=== PATIENT | male | born 1970 | race Caucasian/White ===

== ENCOUNTER 2016-11-14 18:02 | Inpatient (IN) | payer OTHER ==
[~2016-11-14] VITALS: Ht 190.5 cm; Wt 114.8 kg
[~2016-11-14 18:02] MED LIST: ACTOS30 MG PO; ATIVAN0.5 MG PO; ATIVAN1 MG PO; Ativan PO; BENADRYL ALLERG25 MG PO; Benicar PO; CHLORDIAZEPOXID25 MG PO; FOLIC ACID1 MG PO; Folvite PO; HEARTBURN RELI150 M1 PO; INVOKANA100 MG PO; KEPPRA500 MG PO; LEVEMIR FL100 UNIT/1 SC; LIBRIUM10 MG PO; LISINOPRIL20 MG PO; LOSARTAN POTASS50 MG PO; LYRICA100 MG PO; Lopressor PO; METFORMIN HCL1000 MG PO; MORPHINE SULFAT30 M2 PO; OXYCODONE HCL10 MG PO; PANTOPRAZOLE SO40 MG PO; PRAVACHOL20 MG PO; THERAGRAN1 TABLET PO; TIZANIDINE HCL4 MG PO; TRAZODONE HCL50 MG PO; Thiamine,Vitamin B1 PO; VITAMIN B-1100 MG PO; ZANAFLEX4 MG PO; ZANTAC150 MG PO; Zantac,Taladine PO; oxyCODONE PO
[2016-11-14 18:57] LABS: HEMATOCRIT 31.6 % (38.0-50.0); MCH 26.7 PG (29.0-34.0); MCHC 34.8 G/DL (30.0-36.0); MCV 76.7 FL (86-99); MEAN PLAT.VOLUME 11.9 uM^3 (9.0-12.4); PLATELET COUNT 207 K/uL (156-360); RBC DIS.WIDTH-CV 13.9 % (11.8-14.6); RBC DIS.WIDTH-SD 37.5 % (39-53); RED BLOOD COUNT 4.12 M/uL (4.00-5.50); WHITE BLOOD COUNT 18.3 K/uL (4.1-10.2)
[2016-11-14 18:58] LABS: EOSINOPHIL (%) 20.6 % (0-5); EOSINOPHIL COUNT 3.8 K/uL (0-0.3); IMMATURE GRANULOCYTE (%) 0.5 % (0.0-0.7); IMMATURE GRANULOCYTE COUNT 0.9 K/uL; LYMPHOCYTE COUNT 2.9 K/uL (1.0-2.8); MONOCYTE (%) 4.5 % (3-12); MONOCYTE COUNT 0.8 K/uL (0-0.8); NEUTROPHIL (%) 58.5 % (45-76); NEUTROPHIL COUNT 10.8 K/uL (1.8-6.4)
[2016-11-14 19:07] LABS: CHLORIDE 114 mEq/L (99-109); POTASSIUM 5.7 mEq/L (3.7-5.4); SODIUM 139 mEq/L (136-147)
[2016-11-14 19:08] LABS: GLUCOSE 90 mg/dL (70-99)
[2016-11-14 19:12] LABS: GFR ESTIMATE (CALCULATED) 5 mL/min/
[2016-11-14 19:25] LABS: UREA NITROGEN (BUN) 168 mg/dL (9-23)
[2016-11-14] MEDS ORDERED: GLYBURIDE5 MG PO (19:28)
[2016-11-14 19:41] LABS: ADD MIUA? YES; BILIRUBIN SMALL; BLOOD NEGATIVE; COLOR DK YELLOW ((YELLOW)); GLUCOSE (STRIP) NEGATIVE; KETONES TRACE; LEUKOCYTES TRACE; NITRITE NEGATIVE; PROTEIN (STRIP) 30; SPECIFIC GRAVITY 1.026 (1.000-1.030); UROBILINOGEN 0.2 MG/DL (0.2-1.0)
[2016-11-14 19:43] LABS: ANION GAP 20 MEQ/L (2-14)
[2016-11-14 19:46] LABS: AMPHETAMINE NEGATIVE (500 ng/mL); BARBITURATES NEGATIVE (200 ng/mL); BENZODIAZEPINES PRESUMPTIVE POSITIVE (150 ng/mL); COCAINE NEGATIVE (150 ng/mL); INTERNAL CONTROLS VALID? YES; METHADONE NEGATIVE (200 ng/mL); METHAMPHETAMINE NEGATIVE (500 ng/mL); OPIATES (MORPHINE) PRESUMPTIVE POSITIVE (100 ng/mL); OXYCODONE NEGATIVE (100 ng/mL); PHENCYCLIDINE NEGATIVE (25 ng/mL); PROPOXYPHENE NEGATIVE (300 ng/mL); THC CANNABINOIDS NEGATIVE (50 ng/mL); TRICYCLIC ANTIDEPRESSANTS NEGATIVE (300 ng/mL)
[2016-11-14 19:47] LABS: ADD MEDTOX COMMENT Y
[2016-11-14 20:10] LABS: AMORPHOUS URATES CRYSTALS 2+; BACTERIA NONE SEEN; CASTS NONE SEEN /LPF; CRYSTALS PRESENT; EPITHELIAL CELLS NONE SEEN; MUCUS NONE SEEN; RED BLOOD CELLS RARE /HPF (0-5); UCUL ADDED? NO; WHITE BLOOD CELLS RARE /HPF (0-5)
[2016-11-14 20:38] LABS: BENZODIAZEPINES, URINE SCREEN POSITIVE (200 ng/mL)
[2016-11-14 21:53] LABS: BASE EXCESS -22.3 mEq/L (-3 to +3); BICARBONATE 6.2 mEq/L (22-26); CARBOXY HGB 1.6 % (0-5); COMMENTS - BLOOD GASES C+A+; DEVICE ROOM AIR; METHEMOGLOBIN 1.1 % (0-1.5); PCO2 22 mm Hg (35-45); PO2 122 mm Hg (80-100); SITE LR
[2016-11-14 21:54] LABS: pH 7.06 (7.35-7.45)
[2016-11-14 22:30] LABS: CHLORIDE 114 mEq/L (99-109); POTASSIUM 5.4 mEq/L (3.7-5.4); SODIUM 136 mEq/L (136-147)
[2016-11-14 22:33] LABS: ANION GAP 16 MEQ/L (2-14); GLUCOSE 268 mg/dL (70-99)
[2016-11-14 22:35] LABS: SERUM ETHYL ALCOHOL < 10 mg/dL
[2016-11-14 22:36] LABS: GFR ESTIMATE (CALCULATED) 6 mL/min/
[2016-11-14 22:39] LABS: SALICYLATE < 5.0 MG/DL (15-30)
[2016-11-14 22:40] LABS: CREATINE KINASE 192 IU/L (1-294)
[2016-11-14 22:41] LABS: UREA NITROGEN (BUN) 169 mg/dL (9-23)
[2016-11-14 23:21] LABS: TOTAL BILIRUBIN 0.3 mg/dL (0.0-1.0)
[2016-11-14 23:22] LABS: ALKALINE PHOSPHATASE 53 IU/L (3-129)
[2016-11-14 23:25] LABS: DIRECT BILIRUBIN 0.2 mg/dL (0.0-0.3)
[2016-11-15] VITALS (21 sets, daily range): BP systolic 78–115; BP diastolic 39–76
[2016-11-15 01:46] LABS: METH RESISTANT S AUREUS PCR NEGATIVE (NEGATIVE)
[2016-11-15 02:03] LABS: PROBE CHECK PASS; SPECIMEN PROCESSING CONTROL PASS
[2016-11-15 03:35] LABS: BASE EXCESS -19.4 mEq/L (-3 to +3); BICARBONATE 7.5 mEq/L (22-26); CARBOXY HGB 1.6 % (0-5); COMMENTS - BLOOD GASES C+A+; DEVICE ROOM AIR; FI02 21 %; METHEMOGLOBIN 1.8 % (0-1.5); PCO2 21 mm Hg (35-45); PO2 112 mm Hg (80-100); SITE RR; TOTAL RESP RATE 20 resp/min; pH 7.16 (7.35-7.45)
[2016-11-15 03:54] LABS: EOSINOPHIL (%) 14.2 % (0-5); EOSINOPHIL COUNT 1.3 K/uL (0-0.3); HEMATOCRIT 23.7 % (38.0-50.0); HEMATOCRIT 24.2 % (38.0-50.0); IMMATURE GRANULOCYTE (%) 0.3 % (0.0-0.7); IMMATURE GRANULOCYTE COUNT 0.3 K/uL; LYMPHOCYTE COUNT 1.4 K/uL (1.0-2.8); MCH 26.4 PG (29.0-34.0); MCH 26.9 PG (29.0-34.0); MCHC 34.7 G/DL (30.0-36.0); MCHC 35.4 G/DL (30.0-36.0); MCV 76.1 FL (86-99); MEAN PLAT.VOLUME 11.3 uM^3 (9.0-12.4); MEAN PLAT.VOLUME 11.5 uM^3 (9.0-12.4); MONOCYTE (%) 4.3 % (3-12); MONOCYTE COUNT 0.4 K/uL (0-0.8); NEUTROPHIL (%) 65.5 % (45-76); NEUTROPHIL COUNT 5.9 K/uL (1.8-6.4); PLATELET COUNT 153 K/uL (156-360); PLATELET COUNT 155 K/uL (156-360); RBC DIS.WIDTH-CV 13.6 % (11.8-14.6); RBC DIS.WIDTH-CV 13.8 % (11.8-14.6); RBC DIS.WIDTH-SD 36.3 % (39-53); RBC DIS.WIDTH-SD 36.7 % (39-53); RED BLOOD COUNT 3.12 M/uL (4.00-5.50); RED BLOOD COUNT 3.18 M/uL (4.00-5.50); WHITE BLOOD COUNT 8.9 K/uL (4.1-10.2); WHITE BLOOD COUNT 9.1 K/uL (4.1-10.2)
[2016-11-15 04:01] LABS: CHLORIDE 114 mEq/L (99-109); INTER. NORMALIZED RATIO 1.1; PROTHROMBIN TIME 11.6 (9.2-11.2); SODIUM 139 mEq/L (136-147)
[2016-11-15 04:03] LABS: GLUCOSE 218 mg/dL (70-99)
[2016-11-15 04:04] LABS: ANION GAP 18 MEQ/L (2-14)
[2016-11-15 04:07] LABS: GFR ESTIMATE (CALCULATED) 7 mL/min/
[2016-11-15 04:09] LABS: CHLORIDE 114 mEq/L (99-109)
[2016-11-15 04:10] LABS: POTASSIUM 4.1 mEq/L (3.7-5.4); SODIUM 139 mEq/L (136-147); UREA NITROGEN (BUN) 167 mg/dL (9-23)
[2016-11-15 04:12] LABS: GLUCOSE 226 mg/dL (70-99); POTASSIUM 4.1 mEq/L (3.7-5.4)
[2016-11-15 04:13] LABS: ANION GAP 18 MEQ/L (2-14)
[2016-11-15 04:15] LABS: ALKALINE PHOSPHATASE 58 IU/L (3-129); GFR ESTIMATE (CALCULATED) 7 mL/min/; TOTAL BILIRUBIN 0.4 mg/dL (0.0-1.0)
[2016-11-15 04:18] LABS: UREA NITROGEN (BUN) 171 mg/dL (9-23)
[2016-11-15 10:13] LABS: HEMATOCRIT 23.8 % (38.0-50.0); MCH 27.1 PG (29.0-34.0); MCHC 35.3 G/DL (30.0-36.0); MCV 76.8 FL (86-99); MEAN PLAT.VOLUME 11.5 uM^3 (9.0-12.4); PLATELET COUNT 147 K/uL (156-360); RBC DIS.WIDTH-CV 14.2 % (11.8-14.6); WHITE BLOOD COUNT 7.4 K/uL (4.1-10.2)
[2016-11-15 10:48] LABS: EOSINOPHIL (%) 10.7 % (0-5); EOSINOPHIL COUNT 0.8 K/uL (0-0.3); IMMATURE GRANULOCYTE (%) 0.3 % (0.0-0.7); LYMPHOCYTE COUNT 1.4 K/uL (1.0-2.8); MONOCYTE (%) 4.6 % (3-12); MONOCYTE COUNT 0.3 K/uL (0-0.8); NEUTROPHIL (%) 65.7 % (45-76); NEUTROPHIL COUNT 4.9 K/uL (1.8-6.4)
[2016-11-15 10:50] LABS: ANION GAP 21 MEQ/L (2-14); CHLORIDE 112 MEQ/L (99-109); GFR ESTIMATE (CALCULATED) 9 mL/min/; GLUCOSE 243 mg/dL (70-99); POTASSIUM 3.9 MEQ/L (3.7-5.4); SAMPLE HEMOLYSIS CHECK 0; SAMPLE ICTERIC CHECK 0; SAMPLE LIPEMIA CHECK 0; SODIUM 142 MEQ/L (136-147); UREA NITROGEN (BUN) 163 mg/dL (9-23)
[2016-11-15 14:04] LABS: MAGNESIUM 1.3 mg/dl (1.3-2.7)
[2016-11-15 16:01] LABS: POINT-OF-CARE METER ID UU13113803
[2016-11-15 16:37] LABS: EOSINOPHIL (%) 5.8 % (0-5); EOSINOPHIL COUNT 0.4 K/uL (0-0.3); IMMATURE GRANULOCYTE (%) 0.3 % (0.0-0.7); LYMPHOCYTE COUNT 0.9 K/uL (1.0-2.8); MCH 26.6 PG (29.0-34.0); MCHC 34.6 G/DL (30.0-36.0); MCV 76.9 FL (86-99); MEAN PLAT.VOLUME 12.3 uM^3 (9.0-12.4); MONOCYTE (%) 4.2 % (3-12); MONOCYTE COUNT 0.3 K/uL (0-0.8); NEUTROPHIL COUNT 5.3 K/uL (1.8-6.4); PLATELET COUNT 151 K/uL (156-360); RBC DIS.WIDTH-CV 14.1 % (11.8-14.6); RBC DIS.WIDTH-SD 40.4 % (39-53); RED BLOOD COUNT 3.12 M/uL (4.00-5.50); WHITE BLOOD COUNT 6.9 K/uL (4.1-10.2)
[2016-11-15 17:17] LABS: ANION GAP 20 MEQ/L (2-14); CHLORIDE 112 MEQ/L (99-109); GLUCOSE 259 mg/dL (70-99); MAGNESIUM 1.3 mg/dl (1.3-2.7); POTASSIUM 3.8 MEQ/L (3.7-5.4); SAMPLE HEMOLYSIS CHECK 0; SAMPLE ICTERIC CHECK 0; SAMPLE LIPEMIA CHECK 0; SODIUM 142 MEQ/L (136-147)
[2016-11-15 17:28] LABS: GFR ESTIMATE (CALCULATED) 12 mL/min/; UREA NITROGEN (BUN) 157 mg/dL (9-23)
[2016-11-15 22:11] LABS: EOSINOPHIL (%) 4.4 % (0-5); EOSINOPHIL COUNT 0.3 K/uL (0-0.3); HEMATOCRIT 24.2 % (38.0-50.0); IMMATURE GRANULOCYTE (%) 0.5 % (0.0-0.7); LYMPHOCYTE COUNT 0.9 K/uL (1.0-2.8); MCH 26.4 PG (29.0-34.0); MCHC 34.7 G/DL (30.0-36.0); MCV 76.1 FL (86-99); MEAN PLAT.VOLUME 11.3 uM^3 (9.0-12.4); MONOCYTE (%) 5.1 % (3-12); MONOCYTE COUNT 0.3 K/uL (0-0.8); NEUTROPHIL COUNT 4.3 K/uL (1.8-6.4); PLATELET COUNT 164 K/uL (156-360); RBC DIS.WIDTH-SD 39.1 % (39-53); RED BLOOD COUNT 3.18 M/uL (4.00-5.50); WHITE BLOOD COUNT 5.7 K/uL (4.1-10.2)
[2016-11-15 22:50] LABS: ANION GAP 18 MEQ/L (2-14); CHLORIDE 116 MEQ/L (99-109); GFR ESTIMATE (CALCULATED) 20 mL/min/; GLUCOSE 274 mg/dL (70-99); POTASSIUM 3.3 MEQ/L (3.7-5.4); SAMPLE HEMOLYSIS CHECK 0; SAMPLE ICTERIC CHECK 0; SAMPLE LIPEMIA CHECK 0; SODIUM 147 MEQ/L (136-147); UREA NITROGEN (BUN) 139 mg/dL (9-23)
[2016-11-16] VITALS (14 sets, daily range): BP systolic 95–158; BP diastolic 61–99
[2016-11-16 01:53] LABS: POINT-OF-CARE METER ID UU14162636
[2016-11-16 04:46] LABS: EOSINOPHIL (%) 2.4 % (0-5); EOSINOPHIL COUNT 0.2 K/uL (0-0.3); HEMATOCRIT 24.7 % (38.0-50.0); IMMATURE GRANULOCYTE (%) 0.3 % (0.0-0.7); IMMATURE GRANULOCYTE COUNT 0.2 K/uL; MCH 26.6 PG (29.0-34.0); MCHC 35.2 G/DL (30.0-36.0); MCV 75.5 FL (86-99); MEAN PLAT.VOLUME 11.2 uM^3 (9.0-12.4); MONOCYTE COUNT 0.4 K/uL (0-0.8); NEUTROPHIL (%) 77.5 % (45-76); NEUTROPHIL COUNT 5.4 K/uL (1.8-6.4); PLATELET COUNT 186 K/uL (156-360); RBC DIS.WIDTH-CV 13.8 % (11.8-14.6); RBC DIS.WIDTH-SD 36.8 % (39-53); RED BLOOD COUNT 3.27 M/uL (4.00-5.50)
[2016-11-16 05:05] LABS: CHLORIDE 120 mEq/L (99-109); SODIUM 152 mEq/L (136-147)
[2016-11-16 05:06] LABS: MAGNESIUM 1.6 mg/dL (1.3-2.7)
[2016-11-16 05:07] LABS: GLUCOSE 309 mg/dL (70-99)
[2016-11-16 05:09] LABS: ANION GAP 14 MEQ/L (2-14)
[2016-11-16 05:11] LABS: ALKALINE PHOSPHATASE 64 IU/L (3-129)
[2016-11-16 05:19] LABS: GFR ESTIMATE (CALCULATED) 25 mL/min/; TOTAL BILIRUBIN 0.7 mg/dL (0.0-1.0); UREA NITROGEN (BUN) 119 mg/dL (9-23)
[2016-11-16 06:14] LABS: POINT-OF-CARE METER ID UU14174217
[2016-11-16 09:52] LABS: EOSINOPHIL COUNT 0.1 K/uL (0-0.3); HEMATOCRIT 24.7 % (38.0-50.0); IMMATURE GRANULOCYTE (%) 0.2 % (0.0-0.7); LYMPHOCYTE COUNT 0.9 K/uL (1.0-2.8); MCH 26.9 PG (29.0-34.0); MCHC 35.2 G/DL (30.0-36.0); MCV 76.5 FL (86-99); MEAN PLAT.VOLUME 11.6 uM^3 (9.0-12.4); MONOCYTE (%) 4.3 % (3-12); MONOCYTE COUNT 0.3 K/uL (0-0.8); NEUTROPHIL (%) 78.1 % (45-76); NEUTROPHIL COUNT 4.6 K/uL (1.8-6.4); PLATELET COUNT 163 K/uL (156-360); RBC DIS.WIDTH-CV 14.1 % (11.8-14.6); RBC DIS.WIDTH-SD 39.4 % (39-53); RED BLOOD COUNT 3.23 M/uL (4.00-5.50); WHITE BLOOD COUNT 5.8 K/uL (4.1-10.2)
[2016-11-16 10:13] LABS: ANION GAP 15 MEQ/L (2-14); CHLORIDE 116 MEQ/L (99-109); GFR ESTIMATE (CALCULATED) 37 mL/min/; GLUCOSE 307 mg/dL (70-99); POTASSIUM 2.9 MEQ/L (3.7-5.4); SAMPLE HEMOLYSIS CHECK 0; SAMPLE ICTERIC CHECK 0; SAMPLE LIPEMIA CHECK 0; SODIUM 154 MEQ/L (136-147); UREA NITROGEN (BUN) 97 mg/dL (9-23)
[2016-11-16 13:45] LABS: POINT-OF-CARE METER ID UU14162636
[2016-11-16 16:29] LABS: ANION GAP 14 MEQ/L (2-14); CHLORIDE 118 MEQ/L (99-109); GFR ESTIMATE (CALCULATED) 44 mL/min/; GLUCOSE 312 mg/dL (70-99); SAMPLE HEMOLYSIS CHECK 0; SAMPLE ICTERIC CHECK 0; SAMPLE LIPEMIA CHECK 0; SODIUM 156 MEQ/L (136-147); UREA NITROGEN (BUN) 79 mg/dL (9-23)
[2016-11-16 16:59] LABS: EOSINOPHIL (%) 0.2 % (0-5); HEMATOCRIT 25.9 % (38.0-50.0); IMMATURE GRANULOCYTE (%) 0.2 % (0.0-0.7); LYMPHOCYTE COUNT 0.6 K/uL (1.0-2.8); MCH 26.6 PG (29.0-34.0); MCHC 34.4 G/DL (30.0-36.0); MCV 77.5 FL (86-99); MEAN PLAT.VOLUME 11.8 uM^3 (9.0-12.4); MONOCYTE (%) 4.1 % (3-12); MONOCYTE COUNT 0.3 K/uL (0-0.8); NEUTROPHIL (%) 86.2 % (45-76); NEUTROPHIL COUNT 5.3 K/uL (1.8-6.4); PLATELET COUNT 169 K/uL (156-360); RBC DIS.WIDTH-CV 14.1 % (11.8-14.6); RBC DIS.WIDTH-SD 40.6 % (39-53); RED BLOOD COUNT 3.34 M/uL (4.00-5.50); WHITE BLOOD COUNT 6.2 K/uL (4.1-10.2)
[2016-11-16 17:59] LABS: POINT-OF-CARE METER ID UU14174217
[2016-11-16 20:52] LABS: ANION GAP 14 MEQ/L (2-14); CHLORIDE 117 MEQ/L (99-109); GFR ESTIMATE (CALCULATED) 44 mL/min/; GLUCOSE 373 mg/dL (70-99); SAMPLE HEMOLYSIS CHECK 0; SAMPLE ICTERIC CHECK 0; SAMPLE LIPEMIA CHECK 0; SODIUM 154 MEQ/L (136-147); UREA NITROGEN (BUN) 69 mg/dL (9-23)
[2016-11-16 22:27] LABS: EOSINOPHIL (%) 0 % (0-5); HEMATOCRIT 26.4 % (38.0-50.0); IMMATURE GRANULOCYTE (%) 0.2 % (0.0-0.7); IMMATURE GRANULOCYTE COUNT 0.1 K/uL; LYMPHOCYTE COUNT 0.8 K/uL (1.0-2.8); MCH 26.7 PG (29.0-34.0); MCHC 34.5 G/DL (30.0-36.0); MCV 77.4 FL (86-99); MEAN PLAT.VOLUME 10.8 uM^3 (9.0-12.4); MONOCYTE (%) 4.5 % (3-12); MONOCYTE COUNT 0.3 K/uL (0-0.8); NEUTROPHIL (%) 83.1 % (45-76); NEUTROPHIL COUNT 5.4 K/uL (1.8-6.4); PLATELET COUNT 173 K/uL (156-360); RBC DIS.WIDTH-CV 13.9 % (11.8-14.6); RBC DIS.WIDTH-SD 37.5 % (39-53); RED BLOOD COUNT 3.41 M/uL (4.00-5.50); WHITE BLOOD COUNT 6.5 K/uL (4.1-10.2)
[2016-11-16 22:36] LABS: CHLORIDE 123 mEq/L (99-109); POTASSIUM 3.2 mEq/L (3.7-5.4); SODIUM 156 mEq/L (136-147)
[2016-11-16 22:38] LABS: GLUCOSE 335 mg/dL (70-99)
[2016-11-16 22:39] LABS: ANION GAP 12 MEQ/L (2-14)
[2016-11-16 22:42] LABS: GFR ESTIMATE (CALCULATED) 39 mL/min/
[2016-11-16 22:43] LABS: UREA NITROGEN (BUN) 71 mg/dL (9-23)
[2016-11-17] VITALS (10 sets, daily range): BP systolic 121–160; BP diastolic 64–82
[2016-11-17 00:15] LABS: POINT-OF-CARE METER ID UU14174217; POINT-OF-CARE USER ID RADDRS44
[2016-11-17 05:29] LABS: POINT-OF-CARE USER ID RADDRS44
[2016-11-17 05:32] LABS: EOSINOPHIL (%) 0.2 % (0-5); HEMATOCRIT 25.2 % (38.0-50.0); IMMATURE GRANULOCYTE (%) 0.4 % (0.0-0.7); LYMPHOCYTE COUNT 1.1 K/uL (1.0-2.8); MCH 26.9 PG (29.0-34.0); MCHC 33.7 G/DL (30.0-36.0); MCV 79.7 FL (86-99); MEAN PLAT.VOLUME 11.4 uM^3 (9.0-12.4); MONOCYTE (%) 6.4 % (3-12); MONOCYTE COUNT 0.3 K/uL (0-0.8); NEUTROPHIL (%) 72.9 % (45-76); NEUTROPHIL COUNT 3.9 K/uL (1.8-6.4); PLATELET COUNT 147 K/uL (156-360); RBC DIS.WIDTH-CV 14.2 % (11.8-14.6); RBC DIS.WIDTH-SD 41.2 % (39-53); RED BLOOD COUNT 3.16 M/uL (4.00-5.50); WHITE BLOOD COUNT 5.3 K/uL (4.1-10.2)
[2016-11-17 06:11] LABS: ANION GAP 14 MEQ/L (2-14); CHLORIDE 123 MEQ/L (99-109); GFR ESTIMATE (CALCULATED) 44 mL/min/; GLUCOSE 251 mg/dL (70-99); MAGNESIUM 1.2 mg/dl (1.3-2.7); POTASSIUM 3.7 MEQ/L (3.7-5.4); SAMPLE HEMOLYSIS CHECK 0; SAMPLE ICTERIC CHECK 0; SAMPLE LIPEMIA CHECK 0; SODIUM 157 MEQ/L (136-147); UREA NITROGEN (BUN) 61 mg/dL (9-23)
[2016-11-17 12:35] LABS: EOSINOPHIL (%) 0.2 % (0-5); HEMATOCRIT 25.7 % (38.0-50.0); IMMATURE GRANULOCYTE (%) 0.3 % (0.0-0.7); LYMPHOCYTE COUNT 1.2 K/uL (1.0-2.8); MCH 26.7 PG (29.0-34.0); MCHC 33.1 G/DL (30.0-36.0); MCV 80.8 FL (86-99); MEAN PLAT.VOLUME 11.9 uM^3 (9.0-12.4); MONOCYTE (%) 8.3 % (3-12); MONOCYTE COUNT 0.5 K/uL (0-0.8); NEUTROPHIL (%) 70.7 % (45-76); NEUTROPHIL COUNT 4.1 K/uL (1.8-6.4); PLATELET COUNT 133 K/uL (156-360); RBC DIS.WIDTH-CV 14.4 % (11.8-14.6); RBC DIS.WIDTH-SD 42.7 % (39-53); RED BLOOD COUNT 3.18 M/uL (4.00-5.50); WHITE BLOOD COUNT 5.8 K/uL (4.1-10.2)
[2016-11-17 13:04] LABS: ANION GAP 12 MEQ/L (2-14); CHLORIDE 118 MEQ/L (99-109); GFR ESTIMATE (CALCULATED) 50 mL/min/; GLUCOSE 274 mg/dL (70-99); POTASSIUM 3.4 MEQ/L (3.7-5.4); SAMPLE HEMOLYSIS CHECK 0; SAMPLE ICTERIC CHECK 0; SAMPLE LIPEMIA CHECK 0; SODIUM 151 MEQ/L (136-147); UREA NITROGEN (BUN) 53 mg/dL (9-23)
[2016-11-17 18:28] LABS: POINT-OF-CARE METER ID UU13113748
[2016-11-17 18:38] LABS: EOSINOPHIL (%) 0.1 % (0-5); HEMATOCRIT 24.3 % (38.0-50.0); IMMATURE GRANULOCYTE (%) 0.3 % (0.0-0.7); LYMPHOCYTE COUNT 1.3 K/uL (1.0-2.8); MCH 27.2 PG (29.0-34.0); MCHC 34.2 G/DL (30.0-36.0); MCV 79.7 FL (86-99); MEAN PLAT.VOLUME 11.6 uM^3 (9.0-12.4); MONOCYTE (%) 7.5 % (3-12); MONOCYTE COUNT 0.5 K/uL (0-0.8); NEUTROPHIL (%) 72.8 % (45-76); NEUTROPHIL COUNT 4.9 K/uL (1.8-6.4); PLATELET COUNT 127 K/uL (156-360); RBC DIS.WIDTH-CV 14.3 % (11.8-14.6); RBC DIS.WIDTH-SD 41.1 % (39-53); RED BLOOD COUNT 3.05 M/uL (4.00-5.50); WHITE BLOOD COUNT 6.8 K/uL (4.1-10.2)
[2016-11-17 19:14] LABS: ANION GAP 11 MEQ/L (2-14); CHLORIDE 117 MEQ/L (99-109); GFR ESTIMATE (CALCULATED) 59 mL/min/; GLUCOSE 263 mg/dL (70-99); POTASSIUM 3.4 MEQ/L (3.7-5.4); SAMPLE HEMOLYSIS CHECK 0; SAMPLE ICTERIC CHECK 0; SAMPLE LIPEMIA CHECK 0; SODIUM 150 MEQ/L (136-147); UREA NITROGEN (BUN) 46 mg/dL (9-23)
[2016-11-17 22:14] LABS: EOSINOPHIL (%) 0.2 % (0-5); IMMATURE GRANULOCYTE (%) 0.3 % (0.0-0.7); LYMPHOCYTE COUNT 1.4 K/uL (1.0-2.8); MCH 26.5 PG (29.0-34.0); MCHC 32.9 G/DL (30.0-36.0); MCV 80.5 FL (86-99); MEAN PLAT.VOLUME 12.2 uM^3 (9.0-12.4); MONOCYTE (%) 6.8 % (3-12); MONOCYTE COUNT 0.4 K/uL (0-0.8); NEUTROPHIL (%) 69.9 % (45-76); NEUTROPHIL COUNT 4.4 K/uL (1.8-6.4); PLATELET COUNT 135 K/uL (156-360); RBC DIS.WIDTH-CV 14.4 % (11.8-14.6); RBC DIS.WIDTH-SD 42.5 % (39-53); RED BLOOD COUNT 2.98 M/uL (4.00-5.50); WHITE BLOOD COUNT 6.3 K/uL (4.1-10.2)
[2016-11-18] VITALS: BP 130/77
[2016-11-18 01:04] LABS: CHLORIDE 119 mEq/L (99-109)
[2016-11-18 01:05] LABS: POTASSIUM 3.2 mEq/L (3.7-5.4); SODIUM 148 mEq/L (136-147)
[2016-11-18 01:06] LABS: GLUCOSE 244 mg/dL (70-99)
[2016-11-18 01:07] LABS: ANION GAP 10 MEQ/L (2-14)
[2016-11-18 01:10] LABS: GFR ESTIMATE (CALCULATED) 54 mL/min/
[2016-11-18 01:11] LABS: UREA NITROGEN (BUN) 44 mg/dL (9-23)
[2016-11-18 04:00] VITALS: BP 166/73
[2016-11-18 04:41] LABS: EOSINOPHIL (%) 0.5 % (0-5); HEMATOCRIT 24.4 % (38.0-50.0); LYMPHOCYTE COUNT 1.6 K/uL (1.0-2.8); MCH 26.5 PG (29.0-34.0); MCHC 32.8 G/DL (30.0-36.0); MCV 80.8 FL (86-99); MEAN PLAT.VOLUME 11.6 uM^3 (9.0-12.4); MONOCYTE (%) 6.9 % (3-12); MONOCYTE COUNT 0.4 K/uL (0-0.8); NEUTROPHIL (%) 64.4 % (45-76); NEUTROPHIL COUNT 3.7 K/uL (1.8-6.4); PLATELET COUNT 129 K/uL (156-360); RBC DIS.WIDTH-CV 13.6 % (11.8-14.6); RBC DIS.WIDTH-SD 38.7 % (39-53); RED BLOOD COUNT 3.02 M/uL (4.00-5.50); WHITE BLOOD COUNT 5.8 K/uL (4.1-10.2)
[2016-11-18 04:55] LABS: CHLORIDE 118 mEq/L (99-109); POTASSIUM 3.1 mEq/L (3.7-5.4)
[2016-11-18 04:56] LABS: SODIUM 147 mEq/L (136-147)
[2016-11-18 04:57] LABS: GLUCOSE 217 mg/dL (70-99)
[2016-11-18 04:59] LABS: ANION GAP 9 MEQ/L (2-14)
[2016-11-18 05:01] LABS: GFR ESTIMATE (CALCULATED) 59 mL/min/
[2016-11-18 05:02] LABS: UREA NITROGEN (BUN) 39 mg/dL (9-23)
[2016-11-18 08:00] VITALS: BP 153/83
[2016-11-18 10:48] LABS: EOSINOPHIL (%) 0.5 % (0-5); HEMATOCRIT 26.7 % (38.0-50.0); IMMATURE GRANULOCYTE (%) 0.4 % (0.0-0.7); LYMPHOCYTE COUNT 1.5 K/uL (1.0-2.8); MCH 26.7 PG (29.0-34.0); MCHC 32.6 G/DL (30.0-36.0); MCV 81.9 FL (86-99); MEAN PLAT.VOLUME 11.6 uM^3 (9.0-12.4); MONOCYTE (%) 3.7 % (3-12); MONOCYTE COUNT 0.2 K/uL (0-0.8); NEUTROPHIL (%) 68.1 % (45-76); NEUTROPHIL COUNT 3.8 K/uL (1.8-6.4); PLATELET COUNT 119 K/uL (156-360); RBC DIS.WIDTH-SD 42.3 % (39-53); RED BLOOD COUNT 3.26 M/uL (4.00-5.50); WHITE BLOOD COUNT 5.6 K/uL (4.1-10.2)
[2016-11-18 11:26] LABS: ANION GAP 13 MEQ/L (2-14); CHLORIDE 115 MEQ/L (99-109); GFR ESTIMATE (CALCULATED) 54 mL/min/; GLUCOSE 275 mg/dL (70-99); POTASSIUM 3.2 MEQ/L (3.7-5.4); SAMPLE HEMOLYSIS CHECK 0; SAMPLE ICTERIC CHECK 0; SAMPLE LIPEMIA CHECK 0; SODIUM 148 MEQ/L (136-147); UREA NITROGEN (BUN) 35 mg/dL (9-23)
[2016-11-18 12:00] VITALS: BP 154/93
[2016-11-18 15:46] LABS: EOSINOPHIL (%) 0.7 % (0-5); HEMATOCRIT 25.7 % (38.0-50.0); IMMATURE GRANULOCYTE (%) 0.2 % (0.0-0.7); LYMPHOCYTE COUNT 1.6 K/uL (1.0-2.8); MCH 26.5 PG (29.0-34.0); MCHC 32.3 G/DL (30.0-36.0); MCV 82.1 FL (86-99); MEAN PLAT.VOLUME 12.1 uM^3 (9.0-12.4); MONOCYTE (%) 5.2 % (3-12); MONOCYTE COUNT 0.3 K/uL (0-0.8); NEUTROPHIL (%) 65.8 % (45-76); NEUTROPHIL COUNT 3.7 K/uL (1.8-6.4); PLATELET COUNT 114 K/uL (156-360); RBC DIS.WIDTH-CV 13.9 % (11.8-14.6); RBC DIS.WIDTH-SD 42.1 % (39-53); RED BLOOD COUNT 3.13 M/uL (4.00-5.50); WHITE BLOOD COUNT 5.6 K/uL (4.1-10.2)
[2016-11-18 16:00] VITALS: BP 143/87
[2016-11-18 16:26] LABS: ANION GAP 12 MEQ/L (2-14); CHLORIDE 113 MEQ/L (99-109); GFR ESTIMATE (CALCULATED) 59 mL/min/; GLUCOSE 219 mg/dL (70-99); POTASSIUM 3.2 MEQ/L (3.7-5.4); SAMPLE HEMOLYSIS CHECK 0; SAMPLE ICTERIC CHECK 0; SAMPLE LIPEMIA CHECK 0; SODIUM 145 MEQ/L (136-147); UREA NITROGEN (BUN) 32 mg/dL (9-23)
[2016-11-18 18:25] LABS: ANION GAP 10 MEQ/L (2-14); CHLORIDE 114 MEQ/L (99-109); GFR ESTIMATE (CALCULATED) 59 mL/min/; GLUCOSE 188 mg/dL (70-99); POTASSIUM 3.1 MEQ/L (3.7-5.4); SAMPLE HEMOLYSIS CHECK 0; SAMPLE ICTERIC CHECK 0; SAMPLE LIPEMIA CHECK 0; SODIUM 146 MEQ/L (136-147); UREA NITROGEN (BUN) 32 mg/dL (9-23)
[2016-11-18 20:00] VITALS: BP 161/87
[2016-11-18 21:36] LABS: EOSINOPHIL (%) 2.3 % (0-5); EOSINOPHIL COUNT 0.1 K/uL (0-0.3); IMMATURE GRANULOCYTE (%) 0.2 % (0.0-0.7); LYMPHOCYTE COUNT 1.6 K/uL (1.0-2.8); MCH 26.8 PG (29.0-34.0); MCHC 32.8 G/DL (30.0-36.0); MCV 81.7 FL (86-99); MEAN PLAT.VOLUME 11.5 uM^3 (9.0-12.4); MONOCYTE (%) 6.4 % (3-12); MONOCYTE COUNT 0.4 K/uL (0-0.8); NEUTROPHIL (%) 64.4 % (45-76); PLATELET COUNT 111 K/uL (156-360); RBC DIS.WIDTH-CV 13.7 % (11.8-14.6); RBC DIS.WIDTH-SD 41.3 % (39-53); RED BLOOD COUNT 3.06 M/uL (4.00-5.50); WHITE BLOOD COUNT 6.1 K/uL (4.1-10.2)
[2016-11-18 22:12] LABS: ANION GAP 10 MEQ/L (2-14); CHLORIDE 111 MEQ/L (99-109); GFR ESTIMATE (CALCULATED) > 59 mL/min/; GLUCOSE 177 mg/dL (70-99); SAMPLE HEMOLYSIS CHECK 0; SAMPLE ICTERIC CHECK 0; SAMPLE LIPEMIA CHECK 0; SODIUM 143 MEQ/L (136-147); UREA NITROGEN (BUN) 30 mg/dL (9-23)
[2016-11-19] VITALS (7 sets, daily range): BP systolic 130–176; BP diastolic 77–99
[2016-11-19 00:27] LABS: CHLORIDE 114 mEq/L (99-109); SODIUM 143 mEq/L (136-147)
[2016-11-19 00:29] LABS: GLUCOSE 172 mg/dL (70-99)
[2016-11-19 00:30] LABS: ANION GAP 13 MEQ/L (2-14)
[2016-11-19 00:33] LABS: GFR ESTIMATE (CALCULATED) > 59 mL/min/
[2016-11-19 00:34] LABS: UREA NITROGEN (BUN) 29 mg/dL (9-23)
[2016-11-19 04:27] LABS: EOSINOPHIL (%) 4.1 % (0-5); EOSINOPHIL COUNT 0.3 K/uL (0-0.3); HEMATOCRIT 24.9 % (38.0-50.0); IMMATURE GRANULOCYTE (%) 0.3 % (0.0-0.7); IMMATURE GRANULOCYTE COUNT 0.2 K/uL; LYMPHOCYTE COUNT 1.9 K/uL (1.0-2.8); MCHC 33.7 G/DL (30.0-36.0); MCV 80.1 FL (86-99); MEAN PLAT.VOLUME 11.9 uM^3 (9.0-12.4); MONOCYTE (%) 4.6 % (3-12); MONOCYTE COUNT 0.3 K/uL (0-0.8); NEUTROPHIL (%) 63.9 % (45-76); NEUTROPHIL COUNT 4.5 K/uL (1.8-6.4); PLATELET COUNT 117 K/uL (156-360); RBC DIS.WIDTH-CV 13.3 % (11.8-14.6); RBC DIS.WIDTH-SD 36.8 % (39-53); RED BLOOD COUNT 3.11 M/uL (4.00-5.50); WHITE BLOOD COUNT 7.1 K/uL (4.1-10.2)
[2016-11-19 04:29] LABS: CHLORIDE 113 mEq/L (99-109); POTASSIUM 2.7 mEq/L (3.7-5.4); SODIUM 142 mEq/L (136-147)
[2016-11-19 04:31] LABS: GLUCOSE 163 mg/dL (70-99)
[2016-11-19 04:32] LABS: ANION GAP 11 MEQ/L (2-14)
[2016-11-19 04:34] LABS: GFR ESTIMATE (CALCULATED) > 59 mL/min/
[2016-11-19 04:35] LABS: UREA NITROGEN (BUN) 27 mg/dL (9-23)
[2016-11-19 04:42] LABS: MAGNESIUM 0.9 mg/dL (1.3-2.7)
[2016-11-19 05:55] LABS: POINT-OF-CARE METER ID UU13113781; POINT-OF-CARE USER ID 609231305
[2016-11-19 09:25] LABS: EOSINOPHIL (%) 5.1 % (0-5); EOSINOPHIL COUNT 0.3 K/uL (0-0.3); HEMATOCRIT 24.1 % (38.0-50.0); IMMATURE GRANULOCYTE (%) 0.5 % (0.0-0.7); LYMPHOCYTE COUNT 1.5 K/uL (1.0-2.8); MCH 26.8 PG (29.0-34.0); MCHC 33.6 G/DL (30.0-36.0); MCV 79.8 FL (86-99); MEAN PLAT.VOLUME 10.8 uM^3 (9.0-12.4); MONOCYTE (%) 4.5 % (3-12); MONOCYTE COUNT 0.3 K/uL (0-0.8); NEUTROPHIL (%) 66.5 % (45-76); NEUTROPHIL COUNT 4.4 K/uL (1.8-6.4); PLATELET COUNT 104 K/uL (156-360); RBC DIS.WIDTH-CV 13.5 % (11.8-14.6); RBC DIS.WIDTH-SD 39.3 % (39-53); RED BLOOD COUNT 3.02 M/uL (4.00-5.50); WHITE BLOOD COUNT 6.6 K/uL (4.1-10.2)
[2016-11-19 10:02] LABS: ANION GAP 10 MEQ/L (2-14); CHLORIDE 111 MEQ/L (99-109); GFR ESTIMATE (CALCULATED) > 59 mL/min/; GLUCOSE 189 mg/dL (70-99); POTASSIUM 3.1 MEQ/L (3.7-5.4); SAMPLE HEMOLYSIS CHECK 0; SAMPLE ICTERIC CHECK 0; SAMPLE LIPEMIA CHECK 0; SODIUM 142 MEQ/L (136-147); UREA NITROGEN (BUN) 24 mg/dL (9-23)
[2016-11-19 15:52] LABS: EOSINOPHIL (%) 8.1 % (0-5); EOSINOPHIL COUNT 0.6 K/uL (0-0.3); HEMATOCRIT 25.8 % (38.0-50.0); IMMATURE GRANULOCYTE (%) 0.4 % (0.0-0.7); LYMPHOCYTE COUNT 1.9 K/uL (1.0-2.8); MCH 26.7 PG (29.0-34.0); MCHC 33.3 G/DL (30.0-36.0); MCV 80.1 FL (86-99); MEAN PLAT.VOLUME 10.5 uM^3 (9.0-12.4); MONOCYTE (%) 4.1 % (3-12); MONOCYTE COUNT 0.3 K/uL (0-0.8); NEUTROPHIL (%) 61.3 % (45-76); NEUTROPHIL COUNT 4.5 K/uL (1.8-6.4); NRBC (%) 0.4 /100 WBC (0-0); PLATELET COUNT 106 K/uL (156-360); RBC DIS.WIDTH-CV 13.4 % (11.8-14.6); RBC DIS.WIDTH-SD 38.9 % (39-53); RED BLOOD COUNT 3.22 M/uL (4.00-5.50); WHITE BLOOD COUNT 7.4 K/uL (4.1-10.2)
[2016-11-19 16:18] LABS: ANION GAP 9 MEQ/L (2-14); CHLORIDE 113 MEQ/L (99-109); GFR ESTIMATE (CALCULATED) > 59 mL/min/; GLUCOSE 187 mg/dL (70-99); POTASSIUM 3.3 MEQ/L (3.7-5.4); SAMPLE HEMOLYSIS CHECK 0; SAMPLE ICTERIC CHECK 0; SAMPLE LIPEMIA CHECK 0; SODIUM 143 MEQ/L (136-147); UREA NITROGEN (BUN) 20 mg/dL (9-23)
[2016-11-19 20:43] LABS: ANION GAP 10 MEQ/L (2-14); CHLORIDE 113 MEQ/L (99-109); GFR ESTIMATE (CALCULATED) > 59 mL/min/; GLUCOSE 167 mg/dL (70-99); POTASSIUM 3.2 MEQ/L (3.7-5.4); SAMPLE HEMOLYSIS CHECK 0; SAMPLE ICTERIC CHECK 0; SAMPLE LIPEMIA CHECK 0; SODIUM 143 MEQ/L (136-147); UREA NITROGEN (BUN) 17 mg/dL (9-23)
[2016-11-19 20:44] LABS: MAGNESIUM 2.1 mg/dl (1.3-2.7)
[2016-11-19 20:59] LABS: POINT-OF-CARE METER ID UU13113781
[2016-11-19 22:13] LABS: HEMATOCRIT 24.2 % (38.0-50.0); MCH 26.6 PG (29.0-34.0); MCHC 33.1 G/DL (30.0-36.0); MCV 80.4 FL (86-99); MEAN PLAT.VOLUME 11.7 uM^3 (9.0-12.4); PLATELET COUNT 99 K/uL (156-360); RBC DIS.WIDTH-CV 13.4 % (11.8-14.6); RBC DIS.WIDTH-SD 39.1 % (39-53); RED BLOOD COUNT 3.01 M/uL (4.00-5.50); WHITE BLOOD COUNT 6.6 K/uL (4.1-10.2)
[2016-11-19 22:17] LABS: EOSINOPHIL (%) 10.9 % (0-5); EOSINOPHIL COUNT 0.7 K/uL (0-0.3); IMMATURE GRANULOCYTE (%) 0.6 % (0.0-0.7); LYMPHOCYTE COUNT 1.6 K/uL (1.0-2.8); MONOCYTE (%) 3.2 % (3-12); MONOCYTE COUNT 0.2 K/uL (0-0.8); NEUTROPHIL (%) 61.3 % (45-76)
[2016-11-19 22:44] LABS: ANION GAP 9 MEQ/L (2-14); CHLORIDE 112 MEQ/L (99-109); GFR ESTIMATE (CALCULATED) > 59 mL/min/; GLUCOSE 161 mg/dL (70-99); SAMPLE HEMOLYSIS CHECK 0; SAMPLE ICTERIC CHECK 0; SAMPLE LIPEMIA CHECK 0; SODIUM 141 MEQ/L (136-147); UREA NITROGEN (BUN) 16 mg/dL (9-23)
[2016-11-19 23:53] LABS: HEMATOLOGY COMMENT 1 REV
[2016-11-20 00:34] LABS: POINT-OF-CARE METER ID UU13113781
[2016-11-20 04:10] VITALS: BP 133/79
[2016-11-20 07:37] LABS: ALKALINE PHOSPHATASE 37 IU/L (3-129); ANION GAP 7 MEQ/L (2-14); CHLORIDE 113 MEQ/L (99-109); GFR ESTIMATE (CALCULATED) > 59 mL/min/; GLUCOSE 143 mg/dL (70-99); POTASSIUM 3.1 MEQ/L (3.7-5.4); SAMPLE HEMOLYSIS CHECK 0; SAMPLE ICTERIC CHECK 0; SAMPLE LIPEMIA CHECK 0; SODIUM 143 MEQ/L (136-147); TOTAL BILIRUBIN 0.9 MG/DL (0.0-1.0); UREA NITROGEN (BUN) 13 mg/dL (9-23)
[2016-11-20 07:45] LABS: MAGNESIUM 1.7 mg/dl (1.3-2.7)
[2016-11-20 07:48] LABS: EOSINOPHIL (%) 15.7 % (0-5); EOSINOPHIL COUNT 0.9 K/uL (0-0.3); HEMATOCRIT 23.2 % (38.0-50.0); IMMATURE GRANULOCYTE (%) 0.7 % (0.0-0.7); LYMPHOCYTE COUNT 1.2 K/uL (1.0-2.8); MCH 26.8 PG (29.0-34.0); MCHC 33.2 G/DL (30.0-36.0); MCV 80.8 FL (86-99); MEAN PLAT.VOLUME 12.2 uM^3 (9.0-12.4); MONOCYTE COUNT 0.2 K/uL (0-0.8); NEUTROPHIL (%) 58.4 % (45-76); NEUTROPHIL COUNT 3.4 K/uL (1.8-6.4); PLATELET COUNT 95 K/uL (156-360); RBC DIS.WIDTH-CV 13.4 % (11.8-14.6); RBC DIS.WIDTH-SD 39.2 % (39-53); RED BLOOD COUNT 2.87 M/uL (4.00-5.50); WHITE BLOOD COUNT 5.8 K/uL (4.1-10.2)
[2016-11-20 08:30] VITALS: BP 151/92
[2016-11-20 11:40] VITALS: BP 142/80
[2016-11-20 14:15] VITALS: BP 123/58
[2016-11-20] MEDS ORDERED: XIFAXAN550 MG PO (15:05)
[2016-11-20] MEDS ORDERED: LACTULOSE10 GM/151 PO (15:07)
[2016-11-20 15:11] VITALS: BP 138/71
[2016-11-20] MEDS ORDERED: IRON325 MG PO (15:13)
[2016-11-20 15:29] LABS: POINT-OF-CARE METER ID UU13113698
== END 2016-11-20 15:59 | disposition home or self-care (01) | DRG 70 ==
LOC: EME 18:02 → 4WEST 23:02 → EDOF 23:02 → 4WEST 11-15 00:03 → 4EAST 11-19 03:17
PROVIDERS: Emergency Medicine; Internal Medicine; Internal Medicine Critical Care Medicine; Internal Medicine Nephrology
DX: G93.41 Metabolic encephalopathy (principal); J18.9 Pneumonia, unspecified organism; N17.9 Acute kidney failure, unspecified; E72.20 Disorder of urea cycle metabolism, unspecified; E87.2 Acidosis; E87.0 Hyperosmolality and hypernatremia; F11.20 Opioid dependence, uncomplicated; I95.9 Hypotension, unspecified; T68.XXXA Hypothermia, initial encounter; E87.5 Hyperkalemia; F10.239 Alcohol dependence with withdrawal, unspecified; R56.9 Unspecified convulsions; G62.9 Polyneuropathy, unspecified; I10 Essential (primary) hypertension; F32.9 Major depressive disorder, single episode, unspecified; F41.9 Anxiety disorder, unspecified; E11.65 Type 2 diabetes mellitus with hyperglycemia
CPT/HCPCS: 36600; 70450; 71010; 74176; 76705; 76770; 80048; 80048 91; 80053; 80076; 81003; 82010 90; 82040; 82140; 82272; 82436; 82550; 82803; 82948; 83605; 83735; 83930; 83935; 84100; 84133; 84300; 84999; 85025; 85025 91; 85027; 85610; 87040; 87641; 93005; 99281; 99284; G0480; J1644; J1815; J1953; J2060; J2405; J2543; J3411; J3475; J3480; J7030; J7040; J7050; J7070